=== PATIENT | male | born 1975 | race Caucasian/White ===

== ENCOUNTER 2022-03-22 05:54 | Day surgery (SDC) | payer BC ==
[2022-03-22] MEDS ORDERED: Lactated Ringers 1,000 ML IV SCH (06:30)
[2022-03-22] MEDS ORDERED: Versed 2 MG/2 ML Injection ONE (07:12)
[2022-03-22] MEDS ORDERED: Xylocaine-Mpf 2% 5 Ml Vial ONE (07:12)
[2022-03-22] MEDS ORDERED: DIPRIVAN 200 MG/20 ML IV ONE ×2 (07:12→07:37)
[2022-03-22 08:26] VITALS: BP 140/80; PULSE 78; O2SAT 97
--- NOTE | 2022-03-22 08:40 | OP ---
SURGERY DATE/TIME: 03/22/2022 0722 PREOPERATIVE DIAGNOSES: 1) Persistent gastroesophageal reflux disease. 2) Colon cancer screening. POSTOPERATIVE DIAGNOSES: 1) Mild gastritis. 2) Normal colon. PROCEDURES: 1) EGD. 2) Colonoscopy. SURGEON: Jone Paris M.D. ANESTHESIA: MAC by Rupert Mayer CRNA. ESTIMATED BLOOD LOSS: Minimal. SPECIMENS: Two cold forceps biopsies from the gastric antrum. DESCRIPTION OF PROCEDURE: After informed written consent was obtained, the patient was taken to the endoscopy suite. He was placed in left lateral decubitus position and a bite block inserted. Anesthesia was then titrated to desired level of consciousness and the endoscope was inserted in the posterior oropharynx. Under direct visualization the esophagus was traversed. Esophageal mucosa had normal appearance. No obvious lesions or defects were encountered. Upon entering the stomach there is normal rugated gastric mucosa. There was some mild gastritis-type changes in the gastric antrum. No obvious ulceration or bleeding. Pylorus was traversed. The first and second portions of the duodenum appeared within normal limits. Two small cold forceps were taken from the gastric antrum and sent for Helicobacter pylori testing. There was minimal bleeding. Upon withdrawal retroflexion showed no obvious abnormalities in the superior gastric cardia region. The gastroesophageal junction and esophageal mucosa was normal upon withdrawal. The scope was removed and the scopes were switched. Digital rectal exam showed normal sphincter tone and no internal lesions. The scope was then inserted in the rectum and sequentially the entire colonic mucosa was traversed. The level of the cecum was reached and verified with direct visualization of the ileocecal valve. Upon withdrawal careful mucosal inspection revealed no gross abnormalities. Prior to withdrawal retroflexion was performed and showed no internal lesions. The scope was removed and the patient was transferred to the recovery room in good condition.
== END 2022-03-22 08:36 | disposition home or self-care (01) ==
LOC: SDC 05:54
PROVIDERS: ATTEND Family Medicine
DX: Z12.11 Encounter for screening for malignant neoplasm of colon (principal); K21.9 Gastro-esophageal reflux disease without esophagitis; K29.70 Gastritis, unspecified, without bleeding
CPT/HCPCS: J2250; J2704